=== PATIENT | female | born 1970 | race Caucasian/White ===

== ENCOUNTER 2016-07-13 05:20 | Day surgery (SDC) | payer OTHER ==
[~2016-07-13] VITALS: Ht 162.6 cm; Wt 122.0 kg
[~2016-07-13 05:20] MED LIST: ABILIFY5 MG PO; ADDERALL XR 2020 MG PO; CITALOPRAM HBR40 MG PO; EFFEXOR XR150 MG PO; EFFEXOR XR75 MG PO; FLEXERIL10 MG PO; GLUCOPHAGE500 MG PO; HYZAAR 100-21 TABLET PO; IRON325 MG PO; TOPAMAX50 MG PO; VENLAFAXINE HCL75 MG PO; VITAMIN D35000 UNIT PO; WELCHOL3.75 GM PO; WELLBUTRIN SR150 MG PO
[2016-07-13 06:12] VITALS: BP 115/79
[2016-07-13 06:24] LABS: POINT-OF-CARE METER ID UU14174212
[2016-07-13] MEDS ORDERED: PERCOCET 5/31 TABLET PO (07:34)
[2016-07-13] MEDS ORDERED: MOTRIN800 MG PO (07:34)
[2016-07-13 12:46] LABS: POINT-OF-CARE METER ID UU13113675
[2016-07-13 14:00] VITALS: BP 129/72
[2016-07-13 15:00] VITALS: BP 124/80
[2016-07-13 16:55] VITALS: BP 113/70
[2016-07-13 19:10] VITALS: BP 125/84
== END 2016-07-13 19:10 | disposition home or self-care (01) ==
LOC: SDC 05:20
PROVIDERS: Obstetrics & Gynecology
DX: D25.9 Leiomyoma of uterus, unspecified (principal); N87.9 Dysplasia of cervix uteri, unspecified; N84.1 Polyp of cervix uteri; N93.8 Other specified abnormal uterine and vaginal bleeding; I10 Essential (primary) hypertension; E11.9 Type 2 diabetes mellitus without complications; F32.9 Major depressive disorder, single episode, unspecified; Z79.84 Long term (current) use of oral hypoglycemic drugs
CPT/HCPCS: 82948; 88307; 93005; J0131; J0330; J0690; J1170; J2250; J2405; J2710; J3010; J7120; S0020